=== PATIENT | male | born 1995 | race Caucasian/White ===

== ENCOUNTER 2024-08-04 19:00 | Emergency (ER) | payer OTHER, SELFPAY ==
--- NOTE | 2024-08-04 19:06 | XR_ITS ---
Examination: Knee, left , 3 views Technique: Knee AP, lateral, oblique 3 views Date and time of exam: August 04, 2024 1950 hours INDICATIONS: Knee pain years. FINDINGS: No fracture or dislocation Minimal narrowing medial joint space IMPRESSION: Minimal narrowing medial joint space
--- NOTE | 2024-08-04 19:07 | PD.EDADULT ---
ED General RME/HPI General Chief complaint: Extremity Problem,Nontraumatic Stated complaint: LEFT KNEE ROSE Time Seen by Provider: 08/04/24 19:06 Arrival date/time: 08/04/24 19:00 RME / HPI RME / HPI narrative: 29-year-old male patient came in for evaluation regarding left knee pain. Onset of symptoms for several weeks, getting worse this morning after doing exercises. Pain is described as dull ache, severity moderate. Patient denies any fever denies any knee swelling denies any other complaints no medication was taken prior to arrival Related Data Previous Rx's ?Medication ?Instructions ?Recorded tramadol 50 mg tablet 50 mg PO Q6H PRN pain #20 tabs 08/04/24 Allergies Allergy/AdvReac Type Severity Reaction Status Date / Time Penicillins Allergy Verified 08/04/24 19:13 Review of Systems Review of Systems Narrative Review of Systems: Review of system reviewed and within normal limits except mentioned in HPI ED Exam Narrative Physical exam: VITAL SIGNS: Reviewed. GENERAL APPEARANCE: Alert and interactive, follows commands, no acute distress, HEAD AND FACE: Non-traumatic. ENT: PERRL, pink conjunctivitis, eyelid no trauma, Mucous membrane moist. NECK: Supple, nontender, no nuchal rigidity. CHEST: No tenderness, no crepitus, no paradoxical movement, no retractions. LUNGS: Clear, well ventilated, symmetric, no rales, no wheezing, no ronchi, no stridor, good breath sounds bilaterally. HEART: Regular rate, regular rhythm, no murmur, no gallops. ABDOMEN: Soft, positive bowel sounds, nondistended, no guarding, nontender, no rebound, no masses, RECTAL: Deferred. GENITAL: Deferred. NEUROLOGICAL: Gross motor function intact sensory function intact, Appropriate for age. MUSCULOSKELETAL: low back nontender, full range of motion. EXTREMITIES: Left knee tenderness, no swelling no deformity, full range of motion. SKIN: Color pink, dry, no rash, no lacerations, no abrasions, no contusions. LYMPHATICS: Deferred. Course Quality Measures none Orders Category Date Time Status XR knee LT 3V Stat Exams 08/04/24 19:06 Taken Ketorolac Inj [Toradol Inj] Med 08/04/24 19:06 Discontinued 30 mg IM X1 ONE Vital Signs Vital signs: Vital Signs Temperature 97.9 F 08/04/24 19:41 Pulse Rate 85 08/04/24 19:41 Respiratory Rate 20 08/04/24 19:41 Blood Pressure 131/89 H 08/04/24 19:41 Pulse Oximetry (%) 98 08/04/24 19:41 Oxygen Delivery Method Room Air 08/04/24 19:41 Discharge Plan Plan Patient Disposition: HOME (Self Care) Discharge Disposition comment: Stable Prescriptions/Referrals Prescriptions/Med Rec: New tramadol 50 mg tablet 50 mg PO Q6H PRN (Reason: pain) Qty: 20 0RF Referrals: No Primary/Family,Physician [Primary Care Provider] - In 1 week Problem List Clinical Impression: Injury of knee, ligament, Chronic knee pain, ACL injury tear, Injury of medial collateral ligament (MCL) of knee Patient/Caregiver Discharge Instructions Discharge Activity: activity as tolerated Education Materials: Knee Pain Additional Instructions: Thank you for the opportunity for serving you today. You are stable for discharged . You are advised to: Follow-up with your joint specialist MD this Tuesday Return to ED for worsening of symptoms Increase oral fluids Take medication as prescribed Print Language: Latvian Stand Alone Forms: [employer] Award Info., Patient Portal Info Letter MDM Narrative MDM hospital course: 29-year-old male patient came in for evaluation regarding left knee pain. Onset of symptoms for several weeks, getting worse this morning after doing exercises. Pain is described as dull ache, severity moderate. Patient denies any fever denies any knee swelling denies any other complaints no medication was taken prior to arrival. Patient told me that he was recently diagnosed with MCL ACL injury, awaiting for surgery. X-ray of the knee came back unremarkable. Was given Toradol with significant provide of pain. Patient is ambulatory with cane Toradol IM Medication Administration(s) Medication Administration History Discontinued Medications Ketorolac Tromethamine (Ketorolac Inj 60 Mg/2 Ml Vial) 30 mg IM X1 ONE Stop: 08/04/24 19:07 Last Admin: 08/04/24 20:05 Dose: 30 mg Documented By: BERTA Diagnosis Differential diagnosis: Knee pain ACL injury MCL injury knee sprain Most likely dx, and/or detailed dx discussion: Chronic knee pain, ACL injury, MCL injury
[2024-08-04 19:08] VITALS: PULSE 82; RESP 18; O2SAT 98; BMI 25.5
[2024-08-04 19:41] VITALS: BP 131/89; PULSE 85; RESP 20; TEMP 36.6; O2SAT 98
[2024-08-04] MEDS: KETOROLAC INJ 60 MG/2 ML VIAL 30 MG IM (20:05)
== END 2024-08-04 21:36 | disposition home or self-care (01) ==
PROVIDERS: Emergency Provider Emergency Medicine
DX: S83.512A Sprain of anterior cruciate ligament of left knee, initial encounter (principal); X58.XXXA Exposure to other specified factors, initial encounter
CPT/HCPCS: 73562; 96372; 99283; J1885

== ENCOUNTER 2024-08-07 16:24 | Emergency (ER) | payer OTHER, SELFPAY ==
[2024-08-07 16:38] VITALS: BP 163/107; PULSE 104; RESP 19; TEMP 36.7; O2SAT 98
[2024-08-07 16:50] VITALS: PULSE 115; RESP 20; O2SAT 98; BMI 25.5
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
--- NOTE | 2024-08-07 18:15 | PD.EDLOWEX ---
Lower Extremity Injury RME/HPI General Chief Complaint: Extremity Injury, Lower Stated Complaint: LEFT KNEE PAIN Time Seen by Provider: 08/07/24 18:20 Arrival date/time: 08/07/24 16:24 RME / HPI RME / HPI Narrative: This section includes all my notes and documentations, including HPI, PE, and ED course. Lincoln Ponce MD HPI: 29 y/o male with Hx of Hypertension presents to ED BIBA c/o left knee pain s/p twisting his knee while throwing a rock x few days ago. Patient reports not being able to bear weight on the left leg and has been using a cane to ambulate. Patient was seen here 3 days ago, received x-ray, diagnosed with ACL injury tear and MCL injury, given Toradol, and was discharged. No other complaints. ROS: All negative except as documented in HPI. Physical Exam: General: Alert and oriented. No acute distress when remaining still. Eyes: Conjunctivae and lids clear. ENT: No nasal congestion. Neck: Supple. Lungs: No respiratory distress. Skin: Warm and dry. Neuro: Alert and oriented X 3. Left knee: Diffuse tenderness, difficult to localize. Limited range of motion due to pain. No significant edema. My interpretation of the 08/04/2024 left knee x-rays is no acute fracture. At this point, diagnoses include left knee sprain. Treatment here included knee immobilizer placement and crutches. Recommended more outpatient workup. Based on my best medical judgment, made decision no further evaluation or treatment indicated at this time. Patient understands and agrees to the discharge instructions customized and printed, see below. Discharge Instructions from Dr. Ponce: --After evaluation, including your story and the knee x-rays here a few days ago, you sprained your knee.? This means tears to your soft structures, such as [id number]-cartilage.? --To help the healing process, minimal weight bearing (knee immobilizer and crutches) and elevate above waist level for 3 days as much as possible.?? --Apply or heat if helpful. --Take Ibuprofen 800 mg every 6-8 hours today and tomorrow to help decrease swelling then as needed.? --Tylenol with codeine for severe pain. --Most importantly, see a private doctor on 08/08/2024 for recheck and further care. IGhassanu will need more care not available here in the ER--such as MRI imaging, bone scan, physical therapy, and a referral to see a specialist.? To make sure you don't have major tears needing surgery--cannot see big tears on x-rays.?? --Seek immediate medical care with any concerns.?? Lincoln Ponce MD Related Data Previous Rx's ?Medication ?Instructions ?Recorded tramadol 50 mg tablet 50 mg PO Q6H PRN pain #20 tabs 08/04/24 acetaminophen 300 mg-codeine 30 mg 2 tab PO Q8H PRN pain #20 tabs 08/07/24 tablet Allergies Allergy/AdvReac Type Severity Reaction Status Date / Time Penicillins Allergy Verified 08/04/24 19:13 Review of Systems Review of Systems Systems Reviewed: All systems reviewed, normal except as documented Past Medical History Past Medical History CARDIAC: Positive Hypertension Social History SMOKING STATUS: Former smoker ED Exam Narrative Physical exam: Refer to HPI above Course Quality Measures none Orders Category Date Time Status Apply knee immobilizer NOW Care 08/07/24 18:28 Active Crutches .NOW Care 08/07/24 18:28 Active Vital Signs Vital signs: Vital Signs Temperature 98.0 F 08/07/24 16:38 Pulse Rate 104 H 08/07/24 16:38 Respiratory Rate 19 08/07/24 16:38 Blood Pressure 163/107 H 08/07/24 16:38 Pulse Oximetry (%) 98 08/07/24 16:38 Oxygen Delivery Method Room Air 08/07/24 16:38 Extremity Injury, Lower MDM Narrative MDM Narrative:: Scribe Attestation: Tova Fernandez, am scribing for and in the presence of Dr. Ponce. Provider Notation: Although this document has been carefully reviewed, there may still be some phonetic and other typographical errors.? These errors are purely grammatical due to imperfections in the software program and should not be construed in any way to? compromise the substance of the patient's medical care during this visit. 29 y/o male with Hx of Hypertension presents to ED BIBA c/o left knee pain s/p spraining his knee while throwing a rock x few days ago. Patient reports not being able to bear weight on the left leg and has been using aA cane to ambulate. Patient was seen here 3 days ago, received x-ray, diagnosed with ACL injury tear and MCL injury, given Toradol, and was discharged. No other concerns or complaints expressed at this time. Patient data External records reviewed:: [facility] previous records (Reviewed prior ED records from 08/04/24. Patient was seen for ACL injury tear.) and EMS form Clinical information provided by:: patient and EMS Social determinants that could affect healthcare access:: none Patient has the following chronic illnesses:: Hypertension How is presenting disease/condition affected by chronic disease/condition?: uneffected by Evaluation data The following diagnostics were reviewed and interpreted by me:: other (specify) (None) Lab and/or radiology exams considered but not ordered:: None Interpretation Summary: N/A Medications / Prescriptions Medications or Prescriptions considered but not ordered:: None Medication administrations:: N/A Consultations Consultation(s) initiated? (list below): No Diagnosis Extremity Injury, Lower Differential Diagnosis: acute internal derangement of knee, fracture of femur and other (ACL tear, MCL tear) Most likely diagnosis given after review of the tests above:: Left knee sprain Admission Indicated Admission indicated?: not indicated Explain why admission is indicated or not indicated:: With no severe injury, there was no reason for admission. Admission Request Was there a request for admission?: No Disposition Plan Disposition Plan: Discharge Discharge Attestation Discharge Attestation: The patient and all family members were given an opportunity to ask questions and understood the discharge instructions. Discharge instructions specifically effects, indications for sooner follow up or return to the emergency department, and the expected course of current diagnosis. Patient condition: Stable Discharge Plan Plan Patient Disposition: HOME (Self Care) Prescriptions/Referrals Prescriptions/Med Rec: New acetaminophen-codeine 300-30 mg tablet 2 tab PO Q8H MDD 6 PRN (Reason: pain) Qty: 20 0RF No Action tramadol 50 mg tablet 50 mg PO Q6H PRN (Reason: pain) Qty: 20 0RF Referrals: No Primary/Family,Physician [Primary Care Provider] - In 1 week Problem List Clinical Impression: Left knee sprain Patient/Caregiver Discharge Instructions Discharge Activity: activity as tolerated Education Materials: ED Knee Sprain Additional Instructions: Discharge Instructions from Dr. Ponce: --After evaluation, including your story and the knee x-rays here a few days ago, you sprained your knee.? This means tears to your soft structures, such as [id number]-cartilage.? --To help the healing process, minimal weight bearing (knee immobilizer and crutches) and elevate above waist level for 3 days as much as possible.?? --Apply or heat if helpful. --Take Ibuprofen 800 mg every 6-8 hours today and tomorrow to help decrease swelling then as needed.? --Tylenol with codeine for severe pain. --Most importantly, see a private doctor on 08/08/2024 for recheck and further care. IGhassanu will need more care not available here in the ER--such as MRI imaging, bone scan, physical therapy, and a referral to see a specialist.? To make sure you don't have major tears needing surgery--cannot see big tears on x-rays.?? --Seek immediate medical care with any concerns.?? Print Language: [place] Citizen Stand Alone Forms: [employer] Award Info., Patient Portal Info Letter
[2024-08-07 19:08] VITALS: BP 130/65; PULSE 88; RESP 18; TEMP 36.7; O2SAT 100
== END 2024-08-07 19:10 | disposition home or self-care (01) ==
PROVIDERS: Emergency Provider Emergency Medicine
DX: S83.92XA Sprain of unspecified site of left knee, initial encounter (principal); X50.1XXA Overexertion from prolonged static or awkward postures, initial encounter; I10 Essential (primary) hypertension
CPT/HCPCS: 99282